=== PATIENT | male | born 1970 | race African-American/Black ===

== ENCOUNTER 2023-03-03 07:52 | Outpatient (CLI) | payer OTHER, SELFPAY ==
--- NOTE | ~2023-03-03 | MR_ITS ---
EXAMINATION: MR wrist LT wo con DATE: 03/03/2023 08:30 INDICATION: Left wrist pain TECHNIQUE: Magnetic resonance imaging (MRI) of the left wrist was performed without intravenous contr ast. Sequences performed include axial PD-weighted FSE and PD-weighted FS FSE, coronal PD-weighted FS FSE and T1-weighted SE, and sagittal PD-weighted FS FSE and PD-weighted FSE. COMPARISON: None FINDINGS: Intrinsic ligaments: The lunotriquetral ligament is normal. Partial tear of the dorsal component of the scapholunate ligam ent. Triangular fibrocartilage complex (TFCC): Partial tear of the central fibrocartilaginous portion of the triangular fibrocartilage complex. The foveal and styloid attachments as well as the dorsal and volar radioulnar ligaments are normal. The u lnar collateral ligament, ulnotriquetral ligament and meniscal homologue are normal. The extensor car pi ulnaris tendon sheath is normal. Extensor wrist: Mild fusiform thickening and increased intrasubstance signal of the extensor carpi ulnaris tendon ray tered at the level of the tip of the ulnar styloid process consistent with mild tendinopathy without tear. Remaining extensor tendons of the wrist are normal. No tenosynovitis. Flexor wrist: Small amount of fluid extending along the normal flexor carpi radialis tendon consistent with mild te nosynovitis. The flexor tendons of the wrist are otherwise normal. No abnormality in the carpal tunn el with normal median nerve. Guyon's canal: Guyon's canal including the ulnar nerve and artery are normal. Bones/other: Bone alignment is normal. No fracture. Mild polyarticular osteoarthritis at the distal radioulnar, wr ist, midcarpal, triscaphe and first carpal metacarpal joints. There is likely degenerative subchondra l cystic change along the volar/radial aspect of the capitate. Nonspecific marrow edema in distal odalys e of the scaphoid. IMPRESSION: 1. 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 2. Partial tear of the dorsal component of the scapholunate ligament. 3. Partial tear of the central fibrocartilaginous disc of the triangular fibrocartilage complex. 4. Mild tendinopathy without tear of the extensor carpi ulnaris tendon. 5. Mild flexor carpi radialis tenosynovitis. Reviewed, dictated and finalized at location A. IMPRESSION: 1. 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 2. Partial tear of the dorsal component of the scapholunate ligament. 3. Partial tear of the central fibrocartilaginous disc of the triangular fibroc artilage complex. 4. Mild tendinopathy without tear of the extensor carpi ulnaris tendon. 5. Mild flexor carpi radialis tenosynovitis.
== END 2023-03-03 07:53 ==
PROVIDERS: PCP Nurse Practitioner Family; Visit Provider Orthopaedic Surgery
DX: M19.032 Primary osteoarthritis, left wrist (principal); S63.8X2A Sprain of other part of left wrist and hand, initial encounter; M67.834 Other specified disorders of tendon, left wrist; X58.XXXA Exposure to other specified factors, initial encounter
CPT/HCPCS: 73221

== ENCOUNTER 2024-07-17 08:51 | Emergency (ER) | payer OTHER, SELFPAY ==
[2024-07-17 09:04] VITALS: BP 123/84; PULSE 81; RESP 16; TEMP 36.5; O2SAT 99
--- NOTE | 2024-07-17 09:17 | ED_ITS ---
HPI - Nausea/Vomiting/Diarrhea General Chief complaint: Nausea/Vomiting/Diarrhea Stated complaint: Vomiting/Chills Time Seen by Provider: 07/17/24 08:52 Source: patient Mode of arrival: ambulatory Limitations: no limitations History of Present Illness HPI Narrative: Patient is a 53-year-old male that presents with vomiting and chills on Tuesday and nausea but no vomiting yesterday. Patient still feels down but denies any congestion, fever, sore throat, cough, diarrhea. Related Data Home Medications ?Medication ?Instructions ?Recorded ?Confirmed ?Last Taken ?Type cetirizine 10 mg tablet (24Hour 10 mg PO DAILY PRN allergy symptoms 07/17/24 07/17/24 Unknown History Allergy) Allergies Allergy/AdvReac Type Severity Reaction Status Date / Time No Known Allergies Allergy Verified 07/17/24 09:20 Review of Systems Review of Systems: All systems reviewed & are unremarkable except as noted in HPI and below Constitutional: Constitutional: Denies body ache(s), Reports chills, Denies fatigue, Denies fever(s), Denies headache(s), Denies malaise and Denies weakness Eyes: Eyes: Denies blurry vision, Denies irritation and Denies loss of vision ENT: Denies otalgia, Denies headache(s), Denies nasal discharge, Denies sinus pain and Denies sore throat Cardiovascular: Cardiovascular: Denies chest pain, Denies irregular heart rhythm and Denies dyspnea Respiratory: Respiratory: Denies dyspnea Gastrointestinal: Gastrointestinal: Denies abdominal pain, Denies melena, Denies hematochezia, Denies diarrhea, Reports nausea and Reports vomiting Musculoskeletal: Musculoskeletal: Denies back pain, Denies myalgias and Denies arthralgias Integumentary/Breasts: Skin/Breast: Denies pruritus and Denies rash Neurologic: Denies headache(s), Denies loss of vision and Denies weakness Psychiatric: Psychiatric: Reports no additional psychiatric complaints Endocrine: Endocrine: Denies fatigue PMFSH Comments At time of signature, agree with nursing past medical, surgical, social and family history. There is no relevant family history pertinent to the presenting complaint. Exam Const: General: cooperative, healthy appearing, comfortable, no acute distress and well nourished Nutritional Appearance: well nourished Orientation/consciousness: patient oriented x3 Limitations: no limitations HENMT: Head: normal to inspection, normocephalic and atraumatic Ears: hearing grossly normal bilaterally, external ears normal, TM's normal bilaterally and EAC's normal Face/Nose/Sinus: Normal external nose present, normal facial exam, sinuses nontender and face symmetric Face and sinus: normal facial exam, sinuses nontender and face symmetric Mouth: Yes Normal oral and palatal mucosa present, Yes lip normal, Yes tongue normal, Yes Normal salivary glands and ducts present and Yes oropharynx normal Throat: posterior oropharynx normal, tonsils normal and uvula midline Eyes: General: appearance normal, both eyes and all related structures Alignment and Position: alignment normal and position normal Periorbital: periorbital findings normal Eyelids: eyelids normal Pupils: Equal, round and reactive pupils present EOM: EOMs intact bilaterally Neck: Neck: normal visual inspection, full ROM and supple Chest: Chest palpation & inspection: normal inspection of the chest Resp: Effort & Inspection: normal respiratory effort and able to speak in complete sentences Auscultation: clear to auscultation bilaterally Cardio: Rate: regular rate Rhythm: regular rhythm Heart sounds: S1 normal heart sound present and S2 normal heart sound present GI: Inspection: normal to inspection GI Palp: Yes Soft to palpation, No Tenderness to palpation present (GI) and No Guarding due to palpation present (GI) Auscultation: normal bowel sounds Skin: General skin exam: normal color and no rashes or lesions noted Neuro: General: patient oriented x3 and moves all extremities Cranial nerves: Yes Equal, round and reactive pupils present Speech: normal speech Gait exam (Neuro): Normal gait present Extrem: General: normal to inspection, full ROM and no edema Psych: Appearance: grossly normal and well kempt Mental Status: mental status grossly normal Speech and movement: Normal speech and movement present Affect: normal affect Attitude: cooperative Thought process: Normal thought process present Course Course Emergency Course: Patient is aware of diagnosis, understands and agrees to treatment plan. Anticipatory guidance given. Patient agrees to follow-up as directed and is aware of reasons to seek care at the emergency department. Portions of this record may have been created with voice recognition software Level of Care: Express Care Visit Vital Signs Vital signs: Vital Signs Temperature 36.5 C 07/17/24 09:04 Pulse Rate 81 07/17/24 09:04 Respiratory Rate 16 07/17/24 09:04 Blood Pressure 123/84 07/17/24 09:04 Pulse Oximetry 99 07/17/24 09:04 Oxygen Delivery Room Air 07/17/24 09:04 Temperature 36.5 C 07/17/24 09:04 Pulse Rate 81 07/17/24 09:04 Respiratory Rate 16 07/17/24 09:04 Blood Pressure 123/84 07/17/24 09:04 Pulse Oximetry 99 07/17/24 09:04 Oxygen Delivery Room Air 07/17/24 09:04 Reviewed MDM - Nausea/Vomiting/Diarrhea MDM Narrative Medical decision making narrative: Discussed the importance of hydration and small frequent meals. Pt well hydrated appearing, in no respiratory distress, hemodynamically stable. Recommend supportive care. The patient is stable at time of discharge the clinical impression was discussed and the patient was given the opportunity to ask questions, which were addressed as completely as possible given the information available at present. Anticipatory guidance and return to care prec autions were discussed and the importance of primary care follow-up was stressed and encouraged. The patient voiced understanding of the plan, indications to return, and the need for follow-up. Exam findings show no acute concerns or changes Patient is appropriate for outpatient treatment and follow-up. Differential Diagnosis Differential diagnosis: Likely traveler's diarrhea, food poisoning, gastroenteritis and dehydration Medical Records Attestation: I reviewed the patient's medical records. Lab Data Attestation: I reviewed the patient's lab results. Labs: Lab Results 07/17/24 Range/Units 09:41 POC Influenza A Ag Negative (Negative) POC Influenza B Ag Negative (Negative) POC SARS CoV-2 Ag Negative (Negative) Discharge Plan Discharge Clinical Impression: Gastroenteritis Patient Disposition: Home, Self-Care Condition: Stable Instructions: Gastroenteritis (ED) Additional Instructions: Stay hydrated. Take small sips of fluid containing electrolytes frequently(Body [place], Gatorade, Powerade, liquid IV). Eat small meals that her very bland including bananas, applesauce, rice, toast, boiled or grilled chicken, soup. Do not eat anything fried, spicy or overly acidic. You should go to the hospital if you experience return of persistent nausea and vomiting that does not resolve and does not allow you to tolerate any food or fluids, persistent fevers for greater than 2-3 more days, increasing abdominal pain that persists despite me dications, persistent diarrhea, dizziness, syncope (fainting), or for any other concerns. Patient Language: Wallisian Prescriptions: New ondansetron 4 mg tablet,disintegrating 4 mg PO Q6-8H PRN (Reason: nausea and vomiting) Qty: 7 0RF No Action cetirizine [24Hour Allergy] 10 mg tablet 10 mg PO DAILY PRN (Reason: allergy symptoms) Follow-up/Referrals: HE,NOEL COCHRAN [Primary Care Provider] - 3 Days Stand Alone Forms: Work/School Release IP Time of Disposition: 09:51
[2024-07-17 09:43] LABS: EDCOVIDSCREEN Negative (Negative); EDINFLUASCREEN Negative (Negative); EDINFLUBSCREEN Negative (Negative)
== END 2024-07-17 09:58 | disposition home or self-care (01) ==
PROVIDERS: Emergency Provider Nurse Practitioner Family; PCP Nurse Practitioner Family
DX: K52.9 Noninfective gastroenteritis and colitis, unspecified (principal); Z20.822 Contact with and (suspected) exposure to COVID-19; Z90.5 Acquired absence of kidney
CPT/HCPCS: 87426; 87804; 99213; G0463